=== PATIENT | female | born 1985 | race Caucasian/White ===

== ENCOUNTER → 2018-05-02 | Outpatient (CLI) | payer OTHER ==
--- NOTE | 2018-05-02 10:58 | RAD ---
Pelvic ultrasound dated 05/02/2018. No comparison available. Clinical data indication: Pelvic pain. FINDINGS: Transabdominal and transvaginal imaging was performed. The uterus is retroverted and measures 7.7 x 5.5 x 4.3 cm. No focal uterine mass. Endometrial complex is normal in thickness for age measuring 10 mm. Right ovary measures 4.4 x 2.3 x 2.2 cm. Left ovary measures 2.2 x 1.3 x 2.0 cm. No adnexal mass. There is a small amount of free pelvic fluid. IMPRESSION: 1. No acute sonographic abnormality. 2. Small amount of free pelvic fluid, nonspecific. Electronically signed by: Da Esqueda MD (05/02/2018 10:55 AM) [id number]
== END | disposition home or self-care (01) ==
LOC: US 09:36
PROVIDERS: ATTEND Obstetrics & Gynecology
DX: N85.4 Malposition of uterus (principal)
CPT/HCPCS: 76830; 76856